=== PATIENT | female | born 1980 | race Caucasian/White ===

== ENCOUNTER 2016-10-19 12:24 | Outpatient (CLI) | payer OTHER ==
[2015-09-14 21:37] VITALS: BP 142/98
== END 2016-10-19 12:25 ==
LOC: LAB 12:24
PROVIDERS: ATTEND Obstetrics & Gynecology
DX: Z11.3 Encounter for screening for infections with a predominantly sexual mode of transmission (principal)
CPT/HCPCS: 36415; 86592; 86703; 86803; 87340

== ENCOUNTER 2017-01-05 11:08 | Outpatient (CLI) | payer OTHER ==
[2015-09-14 21:37] VITALS: BP 142/98
[2017-01-05 11:52] LABS: eGFR (African) > 60; eGFR (Non-African) > 60
== END 2017-01-05 11:10 ==
LOC: LAB 11:08
PROVIDERS: ATTEND Family Medicine
DX: R79.89 Other specified abnormal findings of blood chemistry (principal); R10.30 Lower abdominal pain, unspecified
CPT/HCPCS: 36415; 80053; 86592

== ENCOUNTER 2017-01-09 12:06 | Outpatient (CLI) | payer OTHER ==
[2015-09-14 21:37] VITALS: BP 142/98
== END 2017-01-09 12:07 ==
LOC: LAB 12:06
PROVIDERS: ATTEND Family Medicine
DX: R53.82 Chronic fatigue, unspecified (principal)
CPT/HCPCS: 36415; 84439; 84443; 84481; 87491; 87591

== ENCOUNTER → 2017-06-30 | Outpatient (CLI) | payer OTHER ==
[2015-09-14 21:37] VITALS: BP 142/98
[2017-06-30 08:25] LABS: EOSINOPHILS % 2.5 % (0.0-6.8); MEAN CORPUSCULAR HEMOGLOBIN 31.5 pg (28.0-34.0); MEAN CORPUSCULAR VOLUME 97.5 fl (80.0-100.0); MONOCYTES % 4.1 % (0.0-11.0); NEUTROPHILS # 4.3 # k/uL (1.4-7.7)
[2017-06-30 09:35] LABS: eGFR (African) > 60; eGFR (Non-African) > 60
== END ==
LOC: LAB 08:05
PROVIDERS: ATTEND Family Medicine
DX: Z00.00 Encounter for general adult medical examination without abnormal findings (principal); E03.9 Hypothyroidism, unspecified; Z11.3 Encounter for screening for infections with a predominantly sexual mode of transmission
CPT/HCPCS: 36415; 80053; 80061; 84439; 84443; 85025; 86703; 86803; 87491; 87591

== ENCOUNTER 2017-12-28 14:59 | Outpatient (CLI) | payer SELFPAY ==
[2015-09-14 21:37] VITALS: BP 142/98
== END 2017-12-28 15:00 ==
LOC: LABRHC 14:59
PROVIDERS: ATTEND Physician Assistant
DX: Z11.3 Encounter for screening for infections with a predominantly sexual mode of transmission (principal); J02.9 Acute pharyngitis, unspecified
CPT/HCPCS: 87070; 87480; 87491; 87510; 87591; 87798

== ENCOUNTER 2018-02-12 13:24 | Outpatient (CLI) | payer OTHER ==
[2015-09-14 21:37] VITALS: BP 142/98
== END 2018-02-12 13:25 ==
LOC: LAB 13:24
PROVIDERS: ATTEND Family Medicine
DX: E03.9 Hypothyroidism, unspecified (principal)
CPT/HCPCS: 36415; 84439; 84443; 84481

== ENCOUNTER 2018-03-29 19:18 | Emergency (ER) | payer OTHER ==
--- NOTE | 2018-03-29 19:36 | ED Physician Documentation ---
Female Urogenital Problems - HPI Stated Complaint: blood in urine Chief Complaint: Female Urogenital Problems Additional Information: Patient presents with a 12 hour history of hematuria and left groin pain. Patient states she noticed some blood tinged urine this afternoon which progressed to urine with blood clots, left groin pain, dysuria, and chills. Patient has had a hysterectomy. Onset: hours (12) Severity: moderate Location of Pain: abdominal pain Further Comments: no - Vaginal Bleeding Description of Menstrual: S/P hysterectomy Sexual History: active - Associated Symptoms Urinary Symptoms: blood in urine, pain w/ urination - ROS CONST: chills GI/: denies: nausea, vomiting CVS/RESP: denies: chest pain, shortness of breath EYES/ENT: none NEURO/PSYCH: dizzy MS/SKIN/LYMPH: none - PAST HX Past History: none Other History: none Surgeries/Procedures: hysterectomy Allergies/Adverse Reactions: Allergies Allergy/AdvReac Type Severity Reaction Status Date / Time No Known Allergies Allergy Verified 03/29/18 20:15 Home Medications: Ambulatory Orders Medication Instructions Recorded Amoxicillin/Potassium Clav 1 each PO BID #14 tablet 03/29/18 [Augmentin 875-125 Tablet] - SOCIAL HX Smoking History: non-smoker Alcohol Use: none Drug Use: none - FAMILY HX Family History: none - VITAL SIGNS Vital Signs: Vital Signs Temp Pulse Resp BP Pulse Ox 142/98 09/14/15 21:36 - REVIEWED ASSESSMENTS Nursing Assessment Reviewed: Yes Vitals Reviewed: Yes ED Results Lab/Radiology - Lab Results Lab Results: UA shows: blood 3+, Nitrite positive, Leukocytes 3+ - Orders Orders: ED Orders Category Date Time Status Place IV Lock 1T Care 03/29/18 19:35 Ordered CBC/PLATELET/DIFF Routine Lab 03/29/18 Ordered CMP Routine Lab 03/29/18 Ordered UA W/MICRO IF INDICATED Routine Lab 03/29/18 Uncollected NORMAL SALINE @ 1000 MLS/HR ( 1000ml BOLUS) Med 03/29/18 19:35 Ordered 0.9 % Sodium Chloride [Normal Saline] 1,000 ml IV Q1H Female Urogenital Problems - EXAM General Appearance: no acute distress, alert EENT: CHRISTOPHER Respiratory: no resp. distress, breath sounds nml CVS: reg rate & rhythm, heart sounds normal Abdomen: soft, non-tender, no distention, nml bowel sounds Rectal: deferred Pelvic: other (deferred) Back: No: CVA tenderness Skin: color nml, no rash Extremities: no edema Neuro: oriented X3 Discharge Clincal Impression: Acute cystitis Qualifiers: Hematuria presence: with hematuria Qualified Code(s): N30.01 - Acute cystitis with hematuria Prescriptions: Amoxicillin/Potassium Clav [Augmentin 875-125 Tablet] 1 each PO BID #14 tablet Referrals: Flor French MD [Primary Care Provider] - 2 Days Additional Instructions: Take antibiotics as prescribed. Return to ED for fever >101.5 or worsening blood in urine. Condition: Stable Disposition: 01 HOME, SELF-CARE Decision to Admit: NO Date of Decison to Admit: 03/29/18 Decision Time: 21:08
[2018-03-29] MEDS: 0.9 % SODIUM CHLORIDE 1,000 ML IV ONE (20:10)
[2018-03-29] MEDS: cefTRIAXone SODIUM 1 GM in 0.9 % SODIUM CHLORIDE 50 ML IV ONE (20:11)
[2018-03-29 20:12] LABS: BASOPHILS % 0.5 (0.0-1.5); EOSINOPHILS % 2.1 % (0.0-6.8); MEAN CORPUSCULAR HEMOGLOBIN 31.4 pg (28.0-34.0); MONOCYTES % 3.5 % (0.0-11.0); NEUTROPHILS # 11.4 # k/uL (1.4-7.7)
[2018-03-29] MEDS: cefTRIAXone SODIUM 1 GM VIAL ONE (20:12)
[2018-03-29 20:47] LABS: eGFR (Non-African) > 60
[2018-03-29 21:33] VITALS: BP 122/73
[2018-03-30 08:18] LABS: APPEARANCE,URINE CLOUDY (CLEAR); COLOR,URINE RED (YELLOW); OCCULT BLOOD,URINE 3+ (NEGATIVE)
== END 2018-03-29 21:30 | disposition home or self-care (01) ==
LOC: ED 19:18
DX: N30.01 Acute cystitis with hematuria (principal)
CPT/HCPCS: 80053; 85025; 87040; J0696; J7030; 81002; 87086; 96365; 96366; S1016

== ENCOUNTER 2018-08-01 10:59 | Outpatient (CLI) | payer BC | END 2018-08-01 11:02 | LOC: LAB 10:59 | PROVIDERS: ATTEND Family Medicine | DX: E03.9 Hypothyroidism, unspecified (principal) | CPT/HCPCS: 36415; 84439; 84443; 84481 ==

== ENCOUNTER 2018-12-03 10:20 | Emergency (ER) | payer BC ==
--- NOTE | 2018-12-03 10:50 | Diagnostic Imaging Report ---
MIKAYLA TURNER (HAY STACKER OPERATOR) - ER [facility] [address] [facility]. [address] [place], [place]. [address] Report Submission Date: Dec 03, 2018 10:49:04 AM CDT Patient Study Name: DEANNE TOWNSEND Date: Dec 03, 2018 10:36:07 AM CDT Modality Type: DX Gender: F Description: CHEST 2VIEW : 80 Institution: [facility] Physician: MIKAYLA TURNER (HAY STACKER OPERATOR) - ER Exam: Chest two views. History: Chest pain. No previous studies are available for comparison. Lung phelps are well aerated without teri consolidation or effusion. Heart and mediastinal contour are normal. Impression: No teri consolidation or effusion. Electronically signed on Dec 03, 2018 10:49:04 AM CDT by: Harry TOLLIVER
[2018-12-03 10:53] LABS: BASOPHILS % 0.5 % (0.0-1.5); NEUTROPHILS # 3.6 # k/uL (1.4-7.7)
[2018-12-03 11:11] LABS: eGFR (Non-African) > 60
--- NOTE | 2018-12-03 11:46 | ED Physician Documentation ---
General Adult - HISTORIAN Historian: patient - HPI Chief Complaint: General Adult Further Comments: yes (38 year old female patient presents with complaint of epigastric pain, chest pain, radiating to left shoulder, and dizziness for the past week. Denies palpitations or shortness of breath. Reports increased anxiety, working outside more and increased hours.) - ROS CONST: no problems EYES/ENT: none CVS/RESP: chest pain. denies: shortness of breath, cough GI/: other (indigestion). denies: abdominal pain, problems urinating, vomitin g, nausea, diarrhea, black stools MS/SKIN/LYMPH: none - PAST HX Past History: other (diverticulitis, constipation) Surgeries/Procedures: , cholecystectomy, hysterectomy, other (colonoscopy) Allergies/Adverse Reactions: Allergies Allergy/AdvReac Type Severity Reaction Status Date / Time No Known Allergies Allergy Verified 12/03/18 11:01 Home Medications: Ambulatory Orders Medication Instructions Recorded Dextroamphetamine/Amphetamine 15 mg PO DAILY 12/03/18 [Dextroamp-Amphet ER 15 mg Cap] - SOCIAL HX Smoking History: cigarettes - FAMILY HX Family History: Yes (CAD) - VITAL SIGNS Vital Signs: Vital Signs Temp Pulse Resp BP Pulse Ox 122/73 03/29/18 21:30 - REVIEWED ASSESSMENTS Nursing Assessment Reviewed: Yes Vitals Reviewed: Yes ED Results Lab/Radiology - Lab Results Lab Results: Lab Results 12/03/18 12/03/18 12/03/18 10:30 10:30 10:30 WBC 6.40 K/ul K/ul (4.00-12.00) RBC 4.18 M/ul M/ul (3.90-5.20) Hgb 13.3 g/dL g/dL (11.5-16.0) Hct 40.1 % % (34.5-46.5) MCV 96.0 fl fl (80.0-100.0) MCH 31.9 pg pg (28.0-34.0) MCHC 33.2 g/dL g/dL (30.0-36.0) RDW 12.6 % % (11.3-14.3) Plt Count 257 K/mm3 K/mm3 (130-400) Neut % (Auto) 56.8 % % (39.0-79.0) Lymph % (Auto) 35.3 % % (16.0-50.0) [place] % (Auto) 4.5 % % (0.0-11.0) Eos % (Auto) 2.9 % % (0.0-6.8) Baso % (Auto) 0.5 % % (0.0-1.5) Neut # (Auto) 3.6 # k/uL # k/uL (1.4-7.7) Lymph # (Auto) 2.3 # k/uL # k/uL (0.6-4.0) [place] # (Auto) 0.3 # k/uL # k/uL (0.0-0.9) Eos # (Auto) 0.2 # k/uL # k/uL (0.0-0.6) Baso # (Auto) 0.0 # k/uL # k/uL (0.0-0.5) Sodium 140 mmol/L mmol/L (137-145) Potassium 3.5 mmol/L mmol/L (3.5-5.1) Chloride 107 mmol/L mmol/L (98-107) Carbon Dioxide 27 mmol/L mmol/L (22-30) BUN 11 mg/dL mg/dL (7-17) Creatinine 0.65 mg/dL mg/dL (0.52-1.04) Est GFR ( Amer) > 60 (60 - ) Est GFR (Non-Af Amer) > 60 (60 - ) Glucose 97 mg/dL mg/dL (74-106) Calcium 8.5 mg/dL mg/dL (8.4-10.2) Total Bilirubin 0.2 mg/dL mg/dL (0.2-1.3) AST 51 U/L H U/L (15-46) ALT 18 U/L U/L (13-69) Alkaline Phosphatase 47 U/L U/L (38-126) Troponin I < 0.012 ng/mL L ng/mL (0.012-0.034) Total Protein 6.5 g/dL g/dL (6.3-8.2) Albumin 4.0 g/dL g/dL (3.5-5.0) - Orders Orders: ED Orders Category Date Time Status Place IV Lock 1T Care 12/03/18 10:42 Active CHEST 2VIEW [RAD] Routine Exams 12/03/18 Completed CBC/PLATELET/DIFF Stat Lab 12/03/18 10:30 Completed CMP Stat Lab 12/03/18 10:30 Completed TROPONIN I Stat Lab 12/03/18 10:30 Completed General Adult Physical Exam - PHYSICAL EXAM GENERAL APPEARANCE: [id number] N EENT: eye inspection normal, no signs of dehydration, CHRISTOPHER RESPIRATORY: no resp distress, chest non-tender, breath sounds normal CVS: reg rate & rhythm, heart sounds normal, equal pulses, no murmur, no gallop, PMI nml, no JVD, no friction rub, 24 ABDOMEN: soft, no organomegaly, normal bowel sounds, no abdominal bruit, no distension SKIN: normal color, warm/dry, NR, INT, PAL, DR EXTREMITIES: non-tender, normal range of motion, no evidence of injury, no edema, J, NEON INSTALLER NEURO: oriented X3, CN's nml as tested, motor nml, sensation nml, mood/affect nml Discharge Clincal Impression: Indigestion, Anxiety Referrals: Flor French MD [Primary Care Provider] - 2 Days Additional Instructions: Rest Over the counter antacid as needed - such a rolaids, mylanta or tums Follow up with Dr French as soon as possible for a wellness exam. Thyroid and diabetes testing has been sent off today. Condition: Stable Disposition: 01 HOME, SELF-CARE Decision to Admit: NO Decision Time: 11:46
[2018-12-03 12:10] VITALS: BP 122/78
== END 2018-12-03 11:55 | disposition home or self-care (01) ==
LOC: ED 10:20
DX: F41.9 Anxiety disorder, unspecified (principal); K30 Functional dyspepsia
CPT/HCPCS: 71046; 80053; 83036; 84439; 84443; 84481; 84484; 85025; 99282; S1016

== ENCOUNTER 2019-04-26 15:49 | Outpatient (CLI) | payer BC ==
[2019-04-26 16:03] LABS: BASOPHILS % 0.4 % (0.0-1.5)
[2019-04-26 16:17] LABS: eGFR (Non-African) > 60
--- NOTE | 2019-04-26 20:36 | Diagnostic Imaging Report ---
PATIENT MR#: [id number] PATIENT PATIENT NAME: DEANNE TOWNSEND DATE OF : 1980 REFERRING PHYSICIAN: Jacquie Quiñonez EXAM DATE: 04/26/2019 ACCESSION NUMBER: [id number] EXAM DESCRIPTION: ABDOMEN 1VIEW HISTORY: LT FLANK PAIN COMPARISON: No pertinent prior studies are available at this time. ABDOMINAL XRAY, 2 FRONTAL VIEWS: Bowel gas pattern: Moderate fecal loading within the right ascending colon. No evidence of obstructio n. Calcifications: Right upper quadrant cholecystectomy clips. No findings to suggest nephrolithiasis by x-ray sensitivity. Skeleton: Intact. IMPRESSION: 1. Moderate right sided fecal loading. 2. No evidence of nephrolithiasis sufficient for radiographic detection. Read by: Dr. Tomas Victor Transcribed by: Tomas Victor Transcribed Date: 04/26/2019 8:35:22 PM Electronically signed by: Dr. Tomas Victor Date signed: 04/26/2019 8:35:22 PM
== END 2019-04-26 15:54 ==
LOC: LAB 15:49
PROVIDERS: ATTEND Nurse Practitioner Family
DX: R10.11 Right upper quadrant pain (principal)
CPT/HCPCS: 36415; 74018; 80053; 85025